=== PATIENT | male | born 2000 | race Hispanic/Latino ===

== ENCOUNTER 2019-05-27 17:14 | Emergency (ER) | payer OTHER ==
[2019-05-27] MEDS ORDERED: ACETAMINOPHEN EXTRA STRENGTH 500 MG TABLET ONE (17:38)
== END 2019-05-27 17:43 | disposition home or self-care (01) ==
LOC: EDH 17:14
DX: S90.511A Abrasion, right ankle, initial encounter (principal); G89.29 Other chronic pain; M25.571 Pain in right ankle and joints of right foot; Z98.890 Other specified postprocedural states; Z88.0 Allergy status to penicillin; X58.XXXA Exposure to other specified factors, initial encounter; Y93.89 Activity, other specified; Y92.89 Other specified places as the place of occurrence of the external cause; Y99.8 Other external cause status

== ENCOUNTER 2019-06-06 18:59 | Emergency (ER) | payer SELFPAY | END 2019-06-06 19:51 | disposition home or self-care (01) | LOC: EDH 18:59 | DX: Z02.89 Encounter for other administrative examinations (principal); Z88.0 Allergy status to penicillin; Z72.0 Tobacco use ==